=== PATIENT | female | born 1965 | race Two or more races ===

== ENCOUNTER 2021-10-12 11:40 | Outpatient (CLI) | payer OTHER ==
[2021-10-20] MEDS ORDERED: RIVA10TA PO (12:48)
[2021-10-20] MEDS ORDERED: LOSA25TA27 PO (12:48)
[2021-10-20] MEDS ORDERED: ASPI-992 PO (12:48)
[2021-10-20] MEDS ORDERED: OXYC5CAP18 PO (12:48)
== END 2021-10-12 23:59 | disposition home or self-care (01) ==
LOC: LAB 11:40
PROVIDERS: ATTEND Specialist
DX: Z01.812 Encounter for preprocedural laboratory examination (principal); Z20.822 Contact with and (suspected) exposure to COVID-19
CPT/HCPCS: C9803; U0003

== ENCOUNTER 2021-10-18 05:20 | Inpatient (IN) | payer OTHER ==
[~2021-10-18] VITALS: Ht 167.6 cm; Wt 140.6 kg
--- NOTE | 2021-10-18 05:35 | NUR ---
MS RN ADMITTING NOTES PATIENT ARRIVED ON UNIT. PATIENT LAYING AWAKE IN BED. A/O X4. PATIENT WITH REGULAR AND UNLABORED BREATHING ON ROOM AIR. NO SIGNS AND SYMPTOMS OF DISTRESS NOTED AT THIS TIME. NO COMPLAINS OF PAIN OR DISCOMFORT AT THIS TIME. IV ACCESS RAC G # 20 SL. IV ACCESS PATENT AND INTACT. SAFETY PRECAUTIONS ENFORCED WITH BED LOCKED AND AT LOWEST POSITION. CALL LIGHT WITHIN REACH AT ALL TIMES. WILL CONTINUE TO MONITOR PATIENT.
[2021-10-18] MEDS ORDERED: BUPIVACAINE 0.5 % PF 150 MG/30 ML VIAL ONE ×2 (06:19→06:37)
[2021-10-18] MEDS ORDERED: POLYMYXIN B SULFATE 500,000 UNITS ONE (06:19)
--- NOTE | 2021-10-18 06:30 | NUR ---
MS RN NOTES PATIENT TAKEN TO SURGERY BY SURGERY STAFF. WILL ENDORSE TO DAY SHIFT NURSE.
[2021-10-18] MEDS ORDERED: HYDROMORPHONE INJ 2 MG/ML DISP.SYRIN ONE (06:35)
[2021-10-18] MEDS ORDERED: FENTANYL PF 250MCG/5ML AMPUL ONE (06:35)
[2021-10-18] MEDS ORDERED: MIDAZOLAM HCL 2 MG/2ML VIAL ONE (06:36)
[2021-10-18] MEDS ORDERED: FAMOTIDINE/PF INJ 20 MG/2 ML VIAL IV ONE (06:36)
[2021-10-18] MEDS ORDERED: ROCURONIUM BROMIDE 50 MG/5 ML ONE (06:36)
[2021-10-18] MEDS ORDERED: TRANEXAMIC ACID 3,000 MG in SODIUM CHLORIDE IRRIG SOLUTION 70 ML IR ONE (07:00)
--- NOTE | 2021-10-18 07:31 | NUR ---
BOOKS BINDER OPENING NOTE PT CURRENTLY OUT FOR SURGERY AT THIS TIME
[2021-10-18] MEDS ORDERED: ACETAMINOPHEN W/ CODEINE#3 1 EA TABLET PO PRN (10:30)
[2021-10-18] MEDS ORDERED: HYDROMORPHONE 1 MG/1 ML DISP.SYRIN IV PRN (10:30)
[2021-10-18] MEDS ORDERED: oxyCODONE IR immediate release 5 MG PO PRN (10:30)
[2021-10-18] MEDS: DRONABINOL (2.5 MG) 2.5 MG CAPSULE PO SCH ×2 (12:03→20:34)
--- NOTE | 2021-10-18 12:50 | NUR ---
MS RN NOTE FORGOT TO SCAN OXYCODONE 10MG;GIVEN AT 1215.
--- NOTE | 2021-10-18 13:00 | NUR ---
MS RN NOTE PT RETURNED FROM SURGERY WITH STABLE VITALS BP 117/50 HR 70 TEMP 98 PULSE OX 97% ROOM AIR. PT A/O X 4. NO S/SX OF ACUTE DISTRESS NOTED. NO C/O PAIN AT THIS TIME. PT S/P LEFT KNEE ARTHROPLASTY. BANDAGE C/D/I. REPORT RECEIVED FROM OR NURSE. ALL ORDERS OBTAINED AND CARRIED OUT. SAFETY MEASURES IN PLACE WITH BED LOCKED AND LOW POSITION, SIDE RAILS UP X 2. CALL LIGHT IS WITHIN REACH. WILL CONTINUE TO MONITOR PATIENT THROUGHOUT SHIFT.
[2021-10-18] MEDS: HYDROMORPHONE 1 MG/1 ML DISP.SYRIN SQ PRN ×3 (13:25→20:38)
[2021-10-18] MEDS ORDERED: CLONIDINE HCL 0.1 MG TABLET PO PRN (13:30)
[2021-10-18] MEDS ORDERED: diphenhydrAMINE HCL 25 MG CAPSULE PO PRN (13:30)
[2021-10-18] MEDS ORDERED: MENTHOL/CETYLPYRD (CEPACOL) 1 LOZ LOZENGE PO PRN (13:30)
[2021-10-18] MEDS ORDERED: MAGNESIUM HYDROXIDE 30 ML UDC PO PRN (13:30)
[2021-10-18] MEDS ORDERED: MAG HYDROX/AL HYDROX/SIMETH 30 ML UDC PO PRN (13:30)
[2021-10-18] MEDS ORDERED: ACETAMINOPHEN 325 MG TABLET PO PRN (14:00)
[2021-10-18] MEDS ORDERED: oxyCODONE IR immediate release 5 MG PO ONE (14:02)
[2021-10-18] MEDS: ANCEF 1 GM/50 ML D5W IV SCH ×4 (14:30→21:38)
[2021-10-18] MEDS: IV D5/0.45 NACL 1,000 ML IV PRN ×2 (14:31→23:40)
[2021-10-18] MEDS: ASPIRIN 325 MG TABLET PO SCH (14:34)
[2021-10-18] MEDS ORDERED: DOCUSATE SODIUM 250 MG CAPSULE PO PRN (17:00)
[2021-10-18] MEDS: DOCUSATE SODIUM 100 MG CAPSULE PO SCH (17:02)
[2021-10-18] MEDS: RIVAROXABAN 10 MG TABLET PO SCH (17:03)
[2021-10-18] MEDS: LOSARTAN POTASSIUM 25 MG TABLET PO SCH (17:04)
[2021-10-18] MEDS: oxyCODONE IR immediate release 5 MG PO PRN ×2 (18:26→23:40)
--- NOTE | 2021-10-18 19:15 | NUR ---
MS DISCHARGE NOTE PT IS RESTING IN BED. NO S/SX OF ACUTE DISTRESS NOTED. NO C/O PAIN AT THIS TIME. PT S/P LEFT KNEE ARTHROPLASTY. BANDAGE C/D/I. POLLOCK CATHETER REMOVED. IV ACCESS PATIENT AND INTACT WITH D5 1/2 NS RUNNING AT 125MLS/HR. SAFETY MEASURES IN PLACE WITH BED LOCKED IN LOW POSITION. CALL LIGHT IS WITHIN REACH. WILL ENDORSE CONTINUITY OF CARE TO ONCOMING SHIFT. Addendum: 10/18/21 at 1917 by EM RUSSO RN ERROR
--- NOTE | 2021-10-18 19:30 | NUR ---
MS RN OPENING NOTES RECEIVED PATIENT LYING IN BED AWAKE. A/O X4. NO SOB OR NOTED. ON O2 AT 2LPM VIA NASAL CANULA. C/O PAIN /, RECEIVED PRN OXYCODONE AN HOUR AGO. S/P LEFT TOTAL KNEE ARTHROPLASTY. SURGICAL DRESSING CLEAN AND INTACT. HAS RIGHT AC IV ACCESS #20G WITH D5 1/2 NS RUNNING AT 125 ML/HR. NO S/S OF INFILTRATION NOTED. SAFETY PRECAUTIONS IN PLACE. WILL CONTINUE PLAN OF CARE.
[2021-10-18 19:53] VITALS: BP 110/60
[2021-10-18 20:00] VITALS: BP 110/60
[2021-10-18] MEDS: FAMOTIDINE (20 MG) 20 MG TABLET PO SCH (20:34)
--- NOTE | 2021-10-18 20:56 | NUR ---
MS PYLE NOTES PATIENT C/O THROBBING PAIN 02/06 ON HER LEFT KNEE. PRN DILAUDID SQ ADMINISTERED. TOLERATED WELL. Addendum: 10/19/21 at 0133 by PATRICIA OCTOBER RODRIGO PYLE INJECTED ON RLQ
[2021-10-18] MEDS ORDERED: SENNOSIDES 8.6 MG TABLET PO PRN (22:00)
[2021-10-18] MEDS ORDERED: ZOLPIDEM TARTRATE 5 MG TABLET PO PRN (22:00)
[2021-10-18] MEDS ORDERED: BISACODYL SUPP (10 MG) 10 MG/SUPP.RECT SUPP.RECT RC PRN (22:00)
[2021-10-19] MEDS: HYDROMORPHONE 1 MG/1 ML DISP.SYRIN SQ PRN ×4 (01:32→19:58)
--- NOTE | 2021-10-19 01:33 | NUR ---
MS RN NOTES PATIENT C/O PAIN 8/10 ON HER LEFT KNEE. ADMINISTERED PRN DILAUDID ON LLQ. NO SOB OR NOTED. UNABLE TO SLEEP D/T PAIN.
[2021-10-19] MEDS: oxyCODONE IR immediate release 5 MG PO PRN ×3 (03:41→14:56)
[2021-10-19] MEDS: ONDANSETRON HCL/PF 4 MG/2 ML VIAL IV PRN ×2 (06:01)
--- NOTE | 2021-10-19 06:01 | NUR ---
MS RN NOTES PATIENT C/O NAUSEA. HAD 1 EPISODE OF EMESIS AROUND MIDNIGHT. PRN ZOFRAN ADMINISTERED.
--- NOTE | 2021-10-19 06:15 | NUR ---
MS RN NOTES PATIENT C/O PAIN 8/10 ON HER LLE. ADMINISTERED PRN DILAUDID ON RUQ. TOLERATED WELL.
[2021-10-19 06:22] LABS: BASOPHILS % (AUTO) 0.1 % (0.0-2.0); HEMATOCRIT 37 % (33-45); HEMOGLOBIN 12.4 g/dL (11.5-14.8); LYMPHOCYTES # (AUTO) 1.3 K/uL (0.8-4.8); LYMPHOCYTES % (AUTO) 11.7 % (20.0-44.0); MEAN CORPUSCULAR HGB CONC 33 g/dl (31.0-36.0); MEAN CORPUSCULAR VOLUME 88 fL (82-100); MONOCYTES % (AUTO) 8.7 % (2.0-12.0); NEUTROPHILS # (AUTO) 8.7 K/uL (1.8-8.9); NEUTROPHILS % (AUTO) 79.5 % (43.0-81.0); PLATELET COUNT (AUTO) 254 K/uL (150-450); RED BLOOD CELL COUNT(AUTO) 4.24 MIL/uL (4.0-5.2)
--- NOTE | 2021-10-19 06:22 | NUR ---
MS RN NOTES RECEIVED A CALL FROM DR. GALVIN ASKING ABOUT PATIENT'S PAIN STATUS. MD ORDER TO GIVE OXYCODONE 15MG ONCE DUE.
[2021-10-19 06:29] LABS: CALCIUM, SERUM 8.2 mg/dL (8.5-10.1); CREATININE 0.7 mg/dL (0.6-1.3); POTASSIUM 3.4 mmol/L (3.5-5.1)
--- NOTE | 2021-10-19 07:00 | NUR ---
MS RN OPENING NOTE PATIENT AWAKE IN BED. A/O X4. NO S/S OF DISTRESS, TOLERATING WELL ON ROOM AIR WITH NO S/S OF RESPIRATORY DISTRESS. RAC # 20 INTACT AND PATENT W/ D5-1/2NS 125ML/HR. SAFETY MEASURES IN PLACE: BED IN LOWEST POSITION, LOCKED, SIDE RAILS UP X2, CALL FRANCOIS WITHIN REACH. WILL CONTINUE TO MONITOR.
--- NOTE | 2021-10-19 07:01 | NUR ---
MS RN CLOSING NOTES PATIENT LYING IN BED WITH EYES CLOSED. WAS NOT ABLE TO SLEEP THROUGHOUT THE NIGHT. A/O X4. NO APPARENT DISTRESS NOTED. ON O2 AT 2LPM VIA NASAL CANULA. C/O PAIN 4-910, PRN PAIN MEDS GIVEN. LLE SX DRESSING CLEAN AND INTACT. HAS RIGHT AC IV ACCESS #20G WITH D5 1/2 NS RUNNING AT 125 ML/HR. INTACT, PATENT AND FLUSHING. ALL NEEDS ATTENDED. ASSISTED CHANGING LEFT LEG POSITION AND APPLIED ICE PACK. NO URINE OUTPUT AFTER F/C REMOVAL. SAFETY PRECAUTIONS IN PLACE: BED LOW AND LOCKED, SIDE RAILS UP X2, CALL LIGHT WITHIN REACH.
--- NOTE | 2021-10-19 07:57 | NUR ---
MS RN NOTE PATIENT COMPLAINT OF 8/10 LEFT LEG PAIN AND REQUESTING PAIN MEDICATION. PRN OXYCODONE 15 MG PO ADMINISTERED ORDERED. WILL CONTINUE TO MONITOR FOR S/S OF PAIN.
[2021-10-19 08:22] VITALS: BP 133/59
[2021-10-19] MEDS: LOSARTAN POTASSIUM 25 MG TABLET PO SCH ×2 (09:00→17:00)
[2021-10-19] MEDS: FAMOTIDINE (20 MG) 20 MG TABLET PO SCH ×2 (09:50→21:21)
[2021-10-19] MEDS: ASPIRIN 325 MG TABLET PO SCH (09:50)
[2021-10-19] MEDS: DRONABINOL (2.5 MG) 2.5 MG CAPSULE PO SCH ×2 (09:51→21:21)
[2021-10-19] MEDS: DOCUSATE SODIUM 100 MG CAPSULE PO SCH ×2 (09:51→17:00)
[2021-10-19] MEDS ORDERED: POTASSIUM CHLORIDE 20 MEQ TAB.PRT.SR PO SCH (10:30)
--- NOTE | 2021-10-19 10:40 | NUR ---
SS Note: Pt. Is a 56-year-old female who demonstrates adequate insight to the reason for hospitalization. Per pt., she came in for knee arthroplasty. and daughter was at bedside. Pt. was oriented x4, alert, and cooperative. During interview, pt. was capable of following directions and appeared groomed. Pt.s speech was at a normal rate and pt.s mood was elevated. Pt. reported no hx of mental health, substance abuse, suicidal ideation, or homicidal ideation. Pt. denies auditory hallucinations, visual hallucinations, paranoia, or delusions. SW explored pt.s living situation. Per pt., she lives with Mario [[id number] [place] [address]]. Per pt., she reports having adequate support from family. Pt. is independent with her ADLs and has her for support. Pt. uses a walker as needed. Pt. stated that she has an open home health. Pt. does not have any further questions or concerns at this time. Plan: SW provided available resources and pt. accepted. Upon discharge, per pt., she will return home with [[id number] [place] [address]]. Resources Provided: ABUSE PREVENTION: ELDER ABUSE HOTLINE (20/01) ADULT PROTECTIVE SERVICES HOTLINE LONG-TERM CARE [facility] Region AREA ON AGING (HOTLINE) ADULT DAY HEALTH CARE CARE CENTERS: Private pay or [facility] funded adult day care [place] [facility] , [facility] Services , [facility] Adult Care Center , [facility] Adult Day Health Care , [facility] Adult Day Health Care , [facility] Adult Daycare Center , [facility] , [facility] Adult [place] , [place] ALZHEIMERS DISEASE/DEMENTIA: Alzheimers Association Helpline [facility] Chapter www.alz.org/[facility] Department of Aging www.lacity.org Family Caregiver [place] www.caregiver.org [place] Caregiver Resources Center/Family Support www.[facility].org CANCER RESOURCES: [place] Cancer Society www.cancer.org Cancer Support Community www.CancerSupportVvsb.org: CancerCare www.cancercare.org [facility] Cancer Support [place] www.FilmLoop.org [facility] HEALTH ASSOCIATIONS: AARP www.aarp.org ALS Association (ask for Raquel) www.als.org [place] Diabetes Association www.diabetes.org [place] Heart Association www.heart.org [place] Lung Association www.lungusa.org [place] Parkinson Disease Association www.apdaparkinson.org [place] , www.redcross.org Arthritis Foundation www.arthritis.org Crohns & Colitis Foundation of [place] www.ccfa.org/chapters/sudhir National Multiple Sclerosis Society www.nationalmssociety.org Myasthenia Gravis Foundation www.myasthenia-ca.org National Stroke Association www.stroke.org CONSERVATORSHIP & GUARDIANSHIP: AARP Becky Cullen Legal Services Center for Health Care Rights [place] Information and Referral Electron Microprobe Operator Foundation [facility]: [facility] Bar Referral Service [facility] Legal Services Office of the Public Guardian [place] EYESIGHT DISORDER RESOURCES: [place] Macular Degeneration Foundation [facility] www.[facility].org GRIEF AND BEREAVEMENT RESOURCES: The [place] , [facility] THE HOPE Connection , [facility] Bereavement Center , [place] HEARING DISORDER RESOURCES: [place] Telephone Access Program Deaf and Disabled Telecommunications Program www.ddtp.cpu.ca.gov HearRx Hearing Centers ([place]) Better Hearing Systems , [place] GLAD ([facility] Agency on Deafness) V/ TTY; Special Class Welder , [facility] Hearing Nemours Foundation -low income hearing aid assistance www.[facility].org Ione Hearing Care , [place] HELP AT HOME CAREGIVER SUPPORT: In Home Support Services (Must have Medi-Matt to be eligible) *Ask for a list of agencies that provide services to assist with care in the home. Local Senior Centers also have listings of care providers. HOME SAFETY MODIFICATIONS AND EQUIPMENT: Senior centers have additional referrals. [place] Housing and Community Investment Dept. Handyworker Program (low income) or Visit http://hcidla.lacity.org/bdk-tmhtwq-ke for more information National Seating and Mobility and/or ; Forever Active www.foreveractivemed.com Stay Home Safe www.Stayhomesafe.com LIFE ALERT RESPONSE SYSTEM: [place] Lifeline Services 569-016-1142 www. [facility].Vilynx Life Alert 588-006-4365 www.[employer] [place] Games.Vilynx Life Station [phone] www.MyParichay.Vilynx Safe Return 437-109-7997 www.alz.or/safereturn Cell Phones for Seniors www.Well Done MEALS AND FOOD PROGRAMS: [place] Meals on Wheels [phone] [place] Meals on Wheels [phone] [facility] [phone] [place] to the Homebound [phone] [place] to the Homebound [phone] [facility] to the Homebound [phone] [facility] to the Homebound [phone] [facility] [phone] [facility] [phone] ONE Generation [phone] [facility] [phone] [facility] [phone] Meals on Wheels [phone] For all ages: $6.85/ meal w side. Delivered M-F from 10 am-1pm. Application and payment is done over the phone. Frozen meals available for weekends. Emergency Food [facility] [phone] [facility] Warm In [phone] [facility] [phone] [facility]- Brown bag lunches [phone] [facility] [phone] MEAL/GROCERY DELIVERY PROGRAMS: [facility] Gourmet Meals [phone]- [facility] [phone] [facility] Magic Kitchen [phone] Moms Meals [phone] (ask Heller for Discount Select grocery stores may provide delivery. MEDICAL INSURANCE SUPPORT SERVICES: Center for Health Care Rights [phone] Health Insurance Counseling/Advocacy Programs (HICAP)-Must have Medicare. Offers counseling for Medi-Matt eligibility [phone] Department of Public Warm [place] [phone] www.[facility].ca.gov Medicare 886-767-5358 www.socialsecurity.org Social Security [phone] SENIOR ACTIVITY PROGRAMS: *Contact a local senior center, adult school, recreation facility or community [facility] for education, fitness, recreation, and social programs. Aquatic Therapy and Adapted Exercise programs through [facility] [phone] Encore at [facility] [phone] www.[facility]/encore U- Senior Friends [phone] [place] Senior Programs [phone] www.oasisnet.org Suddenly 65 www.edanqzor76.com SENIOR CENTERS: [facility] [phone] [facility] [phone] [phone] [facility] [phone] [facility] [phone] [facility] [phone] [facility] [phone] [facility][1] [phone] One Generation [facility] Day Surgery Center [phone] [facility] [phone] [facility] [phone] [facility] [phone] [facility] [phone] TRANSPORTATION: Local [facility] may have applications for transportation programs and additional resources. ACCESS Services [phone] Transportation for seniors and disabled persons 7 days a week requiring 254 hr. advance reservation. Must apply and register for program garrick eligible. [employer] [phone] or [phone] Transportation for seniors and persons with ADA card/metro disabled card in the [facility]. M-F only. Must register for services. ONE GENERATION [phone] Serves 65 years + in conjunction with city ride program. Must be registered with both programs. A to B Transport [phone] Provides wheelchair/gurney van service. Adult Medical Transport [phone] Accepts [facility] with prior authorization. Care Van [phone] Provides wheelchair Transport. [facility] Wide Transportation [phone] Provides gurney service Gentle Care [phone] Gurney Transport. All Town Transportation [phone] wheelchair & gurney transport D Transportation [phone] wheelchair & gurney transport [place] Non-Emergency Transport [phone] wheelchair & gurney transport [facility] Living [place] [phone] Short Term Transportation primarily for adults with disabilities on social security income. Nominal fee may apply and a reservation is required. [facility] Cab [phone] or [phone] [facility] [phone] [place] [address] Referral Services -[phone] For additional programs & services VETERANS RESOURCES: Submissions for Aid and Attendance should be done directly to Federal VA office locatd at : [address] [address] X110 National Caregiver Support Line [phone] [facility] Veterans Services Field Office [phone] [place] Department of Affairs [phone] Pension Information [phone]
[2021-10-19] MEDS ORDERED: oxyCODONE IR immediate release 5 MG PO ONE (10:47)
[2021-10-19] MEDS: IV D5/0.45 NACL 1,000 ML IV PRN (14:40)
[2021-10-19] MEDS: RIVAROXABAN 10 MG TABLET PO SCH (17:00)
--- NOTE | 2021-10-19 19:00 | NUR ---
MS RN CLOSING NOTE PATIENT AWAKE IN BED. A/O X4. NO S/S OF DISTRESS, TOLERATING WELL ON ROOM AIR WITH NO S/S OF RESPIRATORY DISTRESS. ALL NEEDS MET DURING SHIFT. RAC #20 INTACT AND PATENT W/ D5-1/2NS 125ML/HR. SAFETY MEASURES IN PLACE: BED AT LOWEST POSITION, LOCKED, RAILS UP X2, CALL FRANCOIS WITHIN REACH. WILL ENDORSE TO CRITICAL CARE PHYSICIAN FOR DARIN.
--- NOTE | 2021-10-19 19:41 | NUR ---
RN OPENING NOTE PATIENT AWAKE IN BED. A/O X4. NO S/S OF DISTRESS, BREATHING ON RM AIR W/O DIFFICULTY. RAC #20 INTACT AND PATENT W/ D5-1/2NS 125ML/HR. SAFETY MEASURES IN PLACE: BED AT LOWEST POSITION, LOCKED, RAILS UP X2, CALL FRANCOIS WITHIN REACH. WILL CONTINUE TO MONITOR PATIENT.
[2021-10-19 20:19] VITALS: BP 127/66
[2021-10-20] MEDS: IV D5/0.45 NACL 1,000 ML IV PRN (00:45)
--- NOTE | 2021-10-20 02:15 | NUR ---
RN NOTE PATIENT'S IV BECAME INFILTRATED (RAC). ARM WAS ELEVATED, ICE BAG PLACED ON ARM, IV REMOVED. ALL COMPONENTS OF IV ACCOUNTED FOR INCLUDING CATH. NEW IV PLACED IN LFA #20. IV INTACT AND PATENT. PATIENT REPORTS NO PAIN OR IRRITATION AT THE SITE. PATIENT STABLE; WILL CONTINUE TO MONITOR PATIENT.
[2021-10-20] MEDS: HYDROMORPHONE 1 MG/1 ML DISP.SYRIN SQ PRN (02:30)
--- NOTE | 2021-10-20 06:58 | NUR ---
RN CLOSING NOTE PATIENT ASLEEP IN BED. A/OX4. NO S/S OF DISTRESS; BREATHING ON RM AIR W/O DIFFICULTY. LFA #20 INTACT AND PATENT W/ D5-1/2NS 125ML/HR. SAFETY MEASURES IN PLACE: BED AT LOWEST POSITION, LOCKED, RAILS UP X2, CALL FRANCOIS WITHIN REACH. WILL ENDORSE TO NEXT SHIFT FOR DARIN.
--- NOTE | 2021-10-20 07:10 | NUR ---
RN NOTE DR. GALVIN CALLED 3W AND ASKED TO SPEAK W/ ME REGARDING PATIENT'S CURRENT STATUS POST SURGERY. ALL QUESTIONS ANSWERED. PER MD, HE WANTS HER OFF DILAUDID AND UTILIZING OXYCODONE MORE.
[2021-10-20 07:37] LABS: BASOPHILS % (AUTO) 0.2 % (0.0-2.0); EOSINOPHILS % (AUTO) 0.3 % (0.0-6.0); HEMATOCRIT 38 % (33-45); HEMOGLOBIN 12.4 g/dL (11.5-14.8); LYMPHOCYTES # (AUTO) 1.3 K/uL (0.8-4.8); LYMPHOCYTES % (AUTO) 12.9 % (20.0-44.0); MEAN CORPUSCULAR HGB CONC 33 g/dl (31.0-36.0); MEAN CORPUSCULAR VOLUME 89 fL (82-100); MONOCYTES # (AUTO) 0.9 K/uL (0.1-1.30); MONOCYTES % (AUTO) 9.1 % (2.0-12.0); NEUTROPHILS # (AUTO) 7.5 K/uL (1.8-8.9); NEUTROPHILS % (AUTO) 77.5 % (43.0-81.0); PLATELET COUNT (AUTO) 219 K/uL (150-450); RED BLOOD CELL COUNT(AUTO) 4.22 MIL/uL (4.0-5.2); WHITE BLOOD COUNT (AUTO) 9.7 K/uL (4.3-11.0)
[2021-10-20 08:00] VITALS: BP 124/67
[2021-10-20 08:58] LABS: CALCIUM, SERUM 8.4 mg/dL (8.5-10.1); CREATININE 0.7 mg/dL (0.6-1.3); MAGNESIUM 2.1 mg/dL (1.8-2.4); PHOSPHORUS 2.1 mg/dL (2.5-4.9); POTASSIUM 3.6 mmol/L (3.5-5.1)
[2021-10-20] MEDS: DRONABINOL (2.5 MG) 2.5 MG CAPSULE PO SCH (09:58)
[2021-10-20] MEDS: DOCUSATE SODIUM 100 MG CAPSULE PO SCH (09:58)
[2021-10-20 09:59] VITALS: BP 124/67
[2021-10-20] MEDS: LOSARTAN POTASSIUM 25 MG TABLET PO SCH (09:59)
[2021-10-20] MEDS: FAMOTIDINE (20 MG) 20 MG TABLET PO SCH (09:59)
[2021-10-20] MEDS: oxyCODONE IR immediate release 5 MG PO PRN (10:08)
[2021-10-20] MEDS ORDERED: RIVAROXABAN 10 MG TABLET PO SCH (10:50)
[2021-10-20] MEDS ORDERED: LOSA25TA27 PO (12:48)
[2021-10-20] MEDS ORDERED: ASPI-992 PO (12:48)
[2021-10-20] MEDS ORDERED: RIVA10TA PO (12:48)
[2021-10-20] MEDS ORDERED: OXYC5CAP18 PO (12:48)
[2021-10-20] MEDS ORDERED: K PHOS NEUTRAL 250 MG TABLET PO ONE (14:00)
--- NOTE | 2021-10-20 15:08 | NUR ---
received pt. in am alert and oriented x4.dressing clean and dry,up with physical tx.medicated x1 with oxy-ir for pain.md in and dc order given,signed all paperwork and belonging sheet as well. hep lock removed.bandage to site.taken to lobby in w/c accompanied by service delivery director and family.
[2021-11-01] MEDS ORDERED: ASPIRIN 325 MG TABLET PO SCH (14:00)
== END 2021-10-20 15:10 | disposition home health service (06) | DRG 470 ==
LOC: DS 05:20 → MED 05:27
PROVIDERS: ADMIT Registered Nurse; ATTEND Registered Nurse
PROC: 0SRD0J9 Replacement of Left Knee Joint with Synthetic Substitute, Cemented, Open Approach (ICD-10-PCS; principal; 2021-10-18)
DX: M17.12 Unilateral primary osteoarthritis, left knee (principal); Z68.43 Body mass index [BMI] 50.0-59.9, adult; I10 Essential (primary) hypertension; F41.9 Anxiety disorder, unspecified; E66.01 Morbid (severe) obesity due to excess calories; Z88.5 Allergy status to narcotic agent; Z91.040 Latex allergy status; X58.XXXA Exposure to other specified factors, initial encounter; Y99.0 Civilian activity done for income or pay; G47.00 Insomnia, unspecified; F12.90 Cannabis use, unspecified, uncomplicated
CPT/HCPCS: 36415; 80048-TC; 83735-TC; 84100-TC; 85025-TC; 87081-TC; 88305-TC; 88311-TC; 97116-TC; 97530-TC; 97760-TC; A4217; C1713; C1776; G0378; J0690; J1170; J2250; J2405; J2704; J2765; J3010; J3490; J7030; J7060; L1830; Q0167

== ENCOUNTER 2023-05-08 05:02 | Inpatient (IN) | payer OTHER ==
[~2023-05-08] VITALS: Ht 167.6 cm; Wt 135.2 kg
[~2023-05-08 05:02] MED LIST: ASPI-992 PO; LOSA25TA27 PO; OXYC5CAP18 PO; RIVA10TA PO
[2023-05-08] MEDS ORDERED: ANESTHESIA TRAY IN PYXIS 1 EA TRAY MC ONE ×2 (05:51→10:30)
[2023-05-08] MEDS ORDERED: POLYMYXIN B SULFATE 500,000 UNITS ONE (05:51)
[2023-05-08] MEDS ORDERED: BUPIVACAINE 0.5 % PF 150 MG/30 ML VIAL ONE ×2 (05:51→06:22)
[2023-05-08 06:14] VITALS: BP 146/93; TEMP 97.7; O2SAT 100
[2023-05-08] MEDS ORDERED: FENTANYL PF 250MCG/5ML AMPUL ONE (06:21)
[2023-05-08] MEDS ORDERED: HYDROMORPHONE INJ 2 MG/ML DISP.SYRIN ONE (06:21)
[2023-05-08] MEDS ORDERED: MIDAZOLAM HCL 2 MG/2ML VIAL ONE (06:22)
[2023-05-08] MEDS ORDERED: FAMOTIDINE/PF INJ 20 MG/2 ML VIAL IV ONE (06:22)
[2023-05-08] MEDS ORDERED: ROCURONIUM BROMIDE 50 MG/5 ML ONE (06:23)
[2023-05-08] MEDS ORDERED: TRANEXAMIC ACID 3,000 MG in SODIUM CHLORIDE IRRIG SOLUTION 70 ML IR ONE (07:00)
[2023-05-08] MEDS ORDERED: HYDROMORPHONE 1 MG/1 ML DISP.SYRIN ONE (10:13)
[2023-05-08] MEDS: IV D5/0.45 NACL 1,000 ML IV PRN ×2 (11:23→20:25)
[2023-05-08] MEDS ORDERED: ZOLPIDEM TARTRATE 5 MG TABLET PO PRN (11:30)
[2023-05-08] MEDS ORDERED: BISACODYL SUPP (10 MG) 10 MG/SUPP.RECT SUPP.RECT RC PRN (11:30)
[2023-05-08] MEDS ORDERED: IV D5/0.45 NACL 1,000 ML IV PRN (11:30)
[2023-05-08] MEDS ORDERED: SENNOSIDES 8.6 MG TABLET PO PRN (11:30)
[2023-05-08] MEDS ORDERED: ACETAMINOPHEN 325 MG TABLET PO PRN (11:30)
[2023-05-08] MEDS ORDERED: ONDANSETRON HCL/PF 4 MG/2 ML VIAL IV PRN (11:30)
[2023-05-08] MEDS ORDERED: DOCUSATE SODIUM 250 MG CAPSULE PO PRN (11:30)
[2023-05-08] MEDS ORDERED: HYDROCODONE/APAP 10/325MG TABLET PO PRN (12:00)
[2023-05-08] MEDS: HYDROMORPHONE 1 MG/1 ML DISP.SYRIN IV PRN ×3 (14:00→22:54)
[2023-05-08] MEDS ORDERED: TRAMADOL HCL 50 MG TABLET PO PRN (14:30)
[2023-05-08] MEDS ORDERED: LORA-259 PO (14:42)
[2023-05-08] MEDS ORDERED: TRAM50TA2 PO (14:42)
[2023-05-08] MEDS ORDERED: ASPI-1169 PO (14:42)
[2023-05-08] MEDS ORDERED: LOSA50TA39 PO (14:43)
[2023-05-08] MEDS: ANCEF 1 GM/50 ML D5W IV SCH ×4 (15:08→22:44)
[2023-05-08] MEDS: oxyCODONE IR immediate release 5 MG PO PRN (15:39)
[2023-05-08 16:05] VITALS: BP 143/73; TEMP 97.7; O2SAT 97
[2023-05-08 20:00] VITALS: BP 119/55; TEMP 98.6; O2SAT 97
[2023-05-09] MEDS: oxyCODONE IR immediate release 5 MG PO PRN (00:26)
[2023-05-09] MEDS: HYDROMORPHONE 1 MG/1 ML DISP.SYRIN IV PRN ×5 (04:14→23:31)
[2023-05-09] MEDS: IV D5/0.45 NACL 1,000 ML IV PRN (04:51)
[2023-05-09] MEDS ORDERED: oxyCODONE IR immediate release 5 MG PO PRN ×2 (05:00→05:30)
[2023-05-09] MEDS ORDERED: DRONABINOL 2.5 MG PO ONE (05:28)
[2023-05-09] MEDS ORDERED: ONDANSETRON HCL/PF 4 MG/2 ML VIAL IV PRN (05:30)
[2023-05-09] MEDS ORDERED: diphenhydrAMINE HCL 25 MG CAPSULE PO PRN (05:30)
[2023-05-09] MEDS: DRONABINOL 2.5 MG PO SCH ×3 (05:30→21:37)
[2023-05-09] MEDS ORDERED: MENTHOL/CETYLPYRD (CEPACOL) 1 LOZ LOZENGE MM PRN (05:30)
[2023-05-09] MEDS ORDERED: MAG HYDROX/AL HYDROX/SIMETH 30 ML UDC PO PRN (05:30)
[2023-05-09 06:00] LABS: HEMOGLOBIN 12.3 g/dL (11.5-14.8)
[2023-05-09] MEDS: DOCUSATE SODIUM 100 MG CAPSULE PO SCH ×2 (08:21→17:19)
[2023-05-09] MEDS: FAMOTIDINE (20 MG) 20 MG TABLET PO SCH ×2 (08:21→21:36)
[2023-05-09] MEDS: PREGABALIN 25 MG CAPSULE PO SCH ×2 (08:21→17:19)
[2023-05-09] MEDS: ASPIRIN 325 MG TABLET PO SCH (08:21)
[2023-05-09 08:35] VITALS: BP 112/53; TEMP 99; O2SAT 97
[2023-05-09 16:11] VITALS: BP 108/64; TEMP 99; O2SAT 98
[2023-05-09 19:30] VITALS: BP 106/76; TEMP 98.7; O2SAT 97
[2023-05-09 20:00] VITALS: BP 130/60; TEMP 98.9; O2SAT 99
[2023-05-10] MEDS: HYDROMORPHONE 1 MG/1 ML DISP.SYRIN IV PRN ×4 (04:36→15:17)
[2023-05-10] MEDS: DRONABINOL 2.5 MG PO SCH ×2 (06:05→13:30)
[2023-05-10 08:00] VITALS: BP 122/76; TEMP 98.6; O2SAT 96
[2023-05-10] MEDS: ASPIRIN 325 MG TABLET PO SCH (08:24)
[2023-05-10] MEDS: DOCUSATE SODIUM 100 MG CAPSULE PO SCH (08:24)
[2023-05-10] MEDS: PREGABALIN 25 MG CAPSULE PO SCH (08:25)
[2023-05-10] MEDS: FAMOTIDINE (20 MG) 20 MG TABLET PO SCH (08:25)
[2023-05-10] MEDS ORDERED: ASPI-992 PO (11:24)
[2023-05-10] MEDS ORDERED: FAMO20TA80 PO (11:24)
[2023-05-10] MEDS ORDERED: DOCU100C36 PO (11:24)
[2023-05-10] MEDS ORDERED: NALO4SPR BNOSTRILS (11:24)
[2023-05-10] MEDS ORDERED: OXYC15TA2 PO (11:24)
[2023-05-10] MEDS ORDERED: PREG75CA PO (11:24)
== END 2023-05-10 15:50 | disposition home or self-care (01) | DRG 470 ==
LOC: DS 05:02 → MED 05:03
PROVIDERS: ADMIT Nurse Practitioner Acute Care; ATTEND Nurse Practitioner Acute Care
PROC: 0SRC0J9 Replacement of Right Knee Joint with Synthetic Substitute, Cemented, Open Approach (ICD-10-PCS; principal; 2023-05-08)
DX: M17.11 Unilateral primary osteoarthritis, right knee (principal); Z68.42 Body mass index [BMI] 45.0-49.9, adult; I10 Essential (primary) hypertension; F41.9 Anxiety disorder, unspecified; E66.01 Morbid (severe) obesity due to excess calories; Z86.16 Personal history of COVID-19; G89.29 Other chronic pain; Z79.01 Long term (current) use of anticoagulants; Z98.890 Other specified postprocedural states; Z83.3 Family history of diabetes mellitus; Z80.9 Family history of malignant neoplasm, unspecified; Z79.82 Long term (current) use of aspirin; Z79.899 Other long term (current) drug therapy; Z88.5 Allergy status to narcotic agent; Z88.8 Allergy status to other drugs, medicaments and biological substances
CPT/HCPCS: 36415; 82962-TC; 85027-TC; 87081-TC; 97112-TC; 97116-TC; 97530-TC; 97760-TC; A4217; A4223; C1713; C1776; G0378; J0690; J1170; J2250; J2405; J2704; J2765; J3010; J3490; J7030; J7060; L1830; Q0167